=== PATIENT | female | born 1965 | race Two or more races ===

== ENCOUNTER 2025-08-19 10:33 | Emergency (ER) | payer MEDICAID, SELFPAY ==
[2025-08-19 10:34] VITALS: BMI 24.7
[2025-08-19 10:43] VITALS: BP 150/90; PULSE 99; RESP 18; TEMP 37; O2SAT 98
--- NOTE | 2025-08-19 10:51 | XR_ITS ---
EXAMINATION: PA lateral chest 2 views TECHNIQUE: Upright PA lateral chest 2 views Date and time: August 19, 2025, 1124 hours INDICATIONS: Coughing fever beginning 4 days ago. FINDINGS: Significant right upper lobe pneumonia Normal heart size Left lung clear IMPRESSION: Significant right upper lobe pneumonia, follow-up chest imaging recommended to document clearing and exclude underlying cavitary parenchymal disease
--- NOTE | 2025-08-19 10:54 | PD.EDURI ---
Upper Respiratory Inf. RME/HPI General Chief Complaint: Flu Like Symptoms Stated Complaint: CONGESTION/SORE THROAT, I THINK I HAVE PNEUMONIA Time Seen by Provider: 08/19/25 10:36 Source: patient Arrival date/time: 08/19/25 10:33 60-year-old female with a history of hypertension and asthma presents to the emergency room with a chief complaint of sore throat, cough, phlegm, fevers x 4 days Mode of arrival: ambulatory Limitations: no limitations Related Data Home Medications ?Medication ?Instructions ?Recorded ?Confirmed hydrochlorothiazide 25 mg tablet 25 mg PO QDAY 04/08/19 04/08/19 Previous Rx's ?Medication ?Instructions ?Recorded albuterol sulfate 90 mcg/actuation 2 puff inhalation Q6H PRN 08/19/25 aerosol inhaler (Ventolin HFA) shortness of breath or wheezing #6.7 grams azithromycin 250 mg tablet See Rx Instructions PO .COMPLEX #6 08/19/25 (Zithromax Z-Vic) tabs Allergies Allergy/AdvReac Type Severity Reaction Status Date / Time iodine Allergy Severe DYSPNEA Verified 08/19/25 10:36 Penicillins Allergy Severe Fainting Verified 08/19/25 10:36 Review of Systems Review of Systems Systems Reviewed: All systems reviewed, normal except as documented Constitutional Constitutional: Reports system reviewed and no additional complaints, except as documented, Denies fatigue, Denies fever(s), Denies headache(s) and Denies weakness Eyes Eyes: Reports system reviewed and no additional complaints, except as documented, Denies blurry vision and Denies change in vision ENT Ears, Nose, Mouth, and Throat: Reports system reviewed and no additional complaints, except as documented, Denies otalgia, Denies headache(s), Denies nasal congestion, Denies throat swelling and Denies vertigo Cardiovascular Cardiovascular: Reports system reviewed and no additional complaints, except as documented, Denies chest pain, Denies dyspnea and Denies dyspnea on exertion Respiratory Respiratory: Reports system reviewed and no additional complaints, except as documented, Denies chest congestion, Denies cough, Denies dyspnea, Denies dyspnea on exertion and Denies wheezing Gastrointestinal Gastrointestinal: Reports system reviewed and no additional complaints, except as documented, Denies abdominal pain, Denies cramping, Denies nausea and Denies vomiting Genitourinary Genitourinary: Reports system reviewed and no additional complaints, except as documented Musculoskeletal Musculoskeletal: Reports system reviewed and no additional complaints, except as documented and Denies back pain Integumentary/Breasts Skin/Breast: Reports system reviewed and no additional complaints, except as documented and Denies wounds Neurologic Neurologic: Reports system reviewed and no additional complaints, except as documented, Denies confusion, Denies headache(s), Denies lack of coordination, Denies vertigo and Denies weakness Psychiatric Psychiatric: Reports system reviewed and no additional complaints, except as documented, Denies anxiety, Denies confusion, Denies depression, Denies paranoia, Denies suicidal ideation and Denies tactile hallucinations Endocrine Endocrine: Reports system reviewed and no additional complaints, except as documented and Denies fatigue Hematologic/Lymphatic Hematologic/Lymphatic: Reports system reviewed and no additional complaints, except as documented and Denies lymphadenopathy Allergic/Immunologic Allergic/Immunologic: Reports system reviewed and no additional complaints, except as documented, Denies throat swelling, Denies urticaria and Denies wheezing Past Medical History Past Medical History CARDIAC: Positive Hypertension; Negative Congestive Heart Failure RESPIRATORY: Negative Chronic Obstructive Pulmonary Disease (COPD) GENITOURINARY: Negative Renal Disease ENDOCRINE: Negative Diabetes Mellitus Type 1 or Diabetes Mellitus Type 2 Social History SMOKING STATUS: Never smoker SUBSTANCE USE: does not use ED Exam General Limitations: Present no limitations General appearance: Present alert and in no apparent distress Head Head exam: Present atraumatic Eye Eye exam: Present normal appearance, PERRL and EOMI ENT ENT exam: Present normal exam, normal oropharynx and mucous membranes moist Neck Neck exam: Present normal inspection, full ROM and trachea midline Chest Chest inspection: Present normal inspection and symmetric chest wall rise Respiratory Respiratory exam: Present normal lung sounds bilaterally; Absent respiratory distress, wheezes, stridor, accessory muscle use or prolonged expiratory phase Cardiovascular Cardiovascular exam: Present regular rate, normal rhythm, normal heart sounds, +S1 and +S2; Absent tachycardia Abdominal Exam Abdominal exam: Present soft and normal bowel sounds; Absent tenderness Extremities Exam Extremities exam: Present normal inspection and full ROM Back Exam Back exam: Present normal inspection and full ROM Neurological Exam Neurological exam: Present alert, oriented X3 and CN II-XII intact Psychiatric Psychiatric exam: Present normal affect and normal mood Skin Skin exam: Present warm, dry, intact and normal color Course Quality Measures none Orders Category Date Time Status Bedside COVID-19 Antigen Test NOW Care 08/19/25 10:51 Completed Bedside Influenza A&B Antigen Test NOW Care 08/19/25 10:51 Completed XR chest 2V Stat Exams 08/19/25 10:51 Completed Strep A Rapid Stat Lab 08/19/25 11:11 Completed Acetaminophen Tab [Tylenol ES Tab] Med 08/19/25 10:51 Discontinued 1,000 mg PO X1 ONE Dexamethasone Inj [Decadron Inj] Med 08/19/25 10:56 Discontinued 10 mg PO X1 ONE Vital Signs Vital signs: Vital Signs Temperature 98.6 F 08/19/25 10:43 Pulse Rate 99 08/19/25 10:43 Respiratory Rate 18 08/19/25 10:43 Blood Pressure 150/90 H 08/19/25 10:43 Pulse Oximetry (%) 98 08/19/25 10:43 Oxygen Delivery Method Room Air 08/19/25 10:43 Upper Respiratory Infection MDM Narrative MDM Narrative:: 60-year-old female with a history of hypertension and asthma presents to the emergency room with a chief complaint of sore throat, cough, phlegm, fevers x 4 days Patient is hemodynamically stable and in no apparent distress. She is not tachycardic not tachypneic O2 saturation is 98% on room air and she is afebrile Physical examination shows clear bilateral lung sounds there is no wheezing there is no abnormal breath sounds Chest x-ray shows significant right lobe pneumonia. Antibiotics are sent to the patient's pharmacy Patient was discharged and educated to follow-up with primary care provider in the next 24 to 48 hours and return to the emergency room for any evidence of worsening signs or symptoms Patient data External records reviewed:: [facility] previous records Clinical information provided by:: patient Social determinants that could affect healthcare access:: none Patient has the following chronic illnesses:: Asthma, hypertension How is presenting disease/condition affected by chronic disease/condition?: exacerbated by Evaluation data The following diagnostics were reviewed and interpreted by me:: lab results and radiology exam(s) Lab and/or radiology exams considered but not ordered:: Labs and radiology exams considered and ordered Interpretation Summary: Chest [id number]: Significant right upper lobe pneumonia Normal heart size Left lung clear IMPRESSION: Significant right upper lobe pneumonia, follow-up chest imaging recommended to document clearing and exclude underlying cavitary parenchymal disease Medications / Prescriptions Medications or Prescriptions considered but not ordered:: Medication given Medication administrations:: Medication Administration History Discontinued Medications Acetaminophen (Acetaminophen 500 Mg Tablet) 1,000 mg PO X1 ONE Stop: 08/19/25 10:52 Last Admin: 08/19/25 11:03 Dose: 1,000 mg Documented By: JAVIER Dexamethasone Sodium Phosphate (Dexamethasone Sod Phos Inj 10 Mg/Ml Vial) 10 mg PO X1 ONE Stop: 08/19/25 10:57 Last Admin: 08/19/25 11:03 Dose: 10 mg Documented By: JAVIER Medication given Consultations Consultation(s) initiated? (list below): No Diagnosis Upper Respiratory Differential Diagnosis: upper respiratory infection, viral infection, influenza and other (COVID-19/community-acquired pneumonia) Most likely diagnosis given after review of the tests above:: Community-acquired pneumonia Admission Indicated Admission indicated?: not indicated Admission Request Was there a request for admission?: No Disposition Plan Disposition Plan: Discharge Discharge Attestation Discharge Attestation: The patient and all family members were given an opportunity to ask questions and understood the discharge instructions. Discharge instructions specifically effects, indications for sooner follow up or return to the emergency department, and the expected course of current diagnosis. Patient condition: Stable Discharge Plan Plan Patient Disposition: HOME (Self Care) Discharge Disposition comment: Stable Prescriptions/Referrals Prescriptions/Med Rec: New azithromycin [Zithromax Z-Vic] 250 mg tablet See Rx Instructions .ROUTE .COMPLEX Qty: 6 0RF Rx Instructions: For 250 mg dose pack: take 500 mg today (day 1), then 250 mg for 4 days (days 2-5) albuterol sulfate [Ventolin HFA] 90 mcg/actuation HFA aerosol inhaler 2 puff inhalation Q6H PRN (Reason: shortness of breath or wheezing) Qty: 6.7 0RF No Action hydrochlorothiazide 25 mg Tablet 25 mg PO QDAY Referrals: James Qureshi MD [Primary Care Provider, Family Practice] - In 1 week Problem List Clinical Impression: Community acquired pneumonia Patient/Caregiver Discharge Instructions Education Materials: ED Pneumonia (Adult) Additional Instructions: Please follow-up with your primary care provider in the next 24 to 48 hours Your x-ray showed community-acquired pneumonia. Antibiotics sent to your pharmacy please pick them up and take them as indicated Our radiologist recommends a repeat x-ray to make sure that the pneumonia goes away after your symptoms feel better For any evidence of worsening signs or symptoms return to emergency room immediately Print Language: Yoruba Stand Alone Forms: Bruna Award Info., Work/School Release, Patient Portal Info Letter PA/ANATOMY PROFESSOR Supervising Physician PA/ANATOMY PROFESSOR Supervising Physician: Dr. Cody
[2025-08-19] MEDS: DEXAMETHASONE SOD PHOS INJ 10 MG/ML VIAL PO (11:03)
[2025-08-19] MEDS: ACETAMINOPHEN 500 MG TABLET 1000 MG PO (11:03)
[2025-08-19 11:32] LABS: Strep A Rapid Negative (Negative)
== END 2025-08-19 12:16 | disposition home or self-care (01) ==
PROVIDERS: Emergency Provider Nurse Practitioner Family; PCP Family Medicine
DX: J18.9 Pneumonia, unspecified organism (principal); I10 Essential (primary) hypertension; J45.909 Unspecified asthma, uncomplicated
CPT/HCPCS: 71046; 87400; 87651; 87811; 99283; J1100; A9270